=== PATIENT | female | born 1945 | race Caucasian/White ===

== ENCOUNTER → 2016-09-24 | Outpatient (REF) | payer MEDICARE, OTHER | LOC: M LAB REF 13:17 | PROVIDERS: ATTEND Family Medicine | DX: Z01.89 Encounter for other specified special examinations (principal) ==

== ENCOUNTER → 2019-05-19 | Outpatient (REF) | payer MEDICARE, OTHER ==
[2019-05-22 00:16] LABS: Lyme Disease IgG/IgM Antibodie <0.91 ISR (0.00-0.90); Lyme Disease IgM Ab Quantitati <0.80 index (0.00-0.79)
== END ==
LOC: M LAB REF 16:25
PROVIDERS: ATTEND Registered Nurse
DX: M25.511 Pain in right shoulder (principal)

== ENCOUNTER → 2020-06-05 | Outpatient (CLI) | payer SELFPAY | LOC: M LABSMTC 11:41 | PROVIDERS: ATTEND Pediatrics | DX: Z20.828 Contact with and (suspected) exposure to other viral communicable diseases (principal) ==

== ENCOUNTER → 2021-04-20 | Outpatient (CLI) | payer MEDICARE, OTHER | LOC: M LABSMTC 09:05 | PROVIDERS: ATTEND Family Medicine | DX: Z20.822 Contact with and (suspected) exposure to COVID-19 (principal) | CPT/HCPCS: C9803; U0003 ==

== ENCOUNTER → 2021-06-28 | Outpatient (REF) | LOC: M LABSMTC 09:07 | PROVIDERS: ATTEND Pediatrics | DX: Z11.52 Encounter for screening for COVID-19 (principal) ==

== ENCOUNTER 2021-07-04 07:28 | Outpatient (CLI) | payer MEDICARE, OTHER ==
[~2021-07-04] VITALS: Ht 157.5 cm; Wt 70.0 kg
[~2021-07-04 07:28] MED LIST: ALBUTEROL 90 MCG/ACT 8GM HFA INHALER INH PRN; ALBUTEROL SULFATE 2.5 MG/0.5 ML INH NEB SOLN INH PRN; EPINEPHrine INJ 1 MG/ML 1ML AMP IM PRN; NS 1,000 ML IV SCH; diphenhydrAMINE 50MG/ML VIAL (J1200) IV PRN; methylPREDNISolone 125MG 2ML VIAL IV PRN
[2021-07-04] MEDS ORDERED: ACETAMINOPHEN TAB 650MG DOSE (2X325MG) PO ONE (07:30)
[2021-07-04] MEDS ORDERED: BAMLANIVIMAB 700 MG, ETESEVIMAB 1,400 MG in NS 250 ML IV ONE (07:30)
[2021-07-04 08:29] VITALS: BP 142/64
[2021-07-04 08:59] VITALS: BP 124/58
[2021-07-04 09:29] VITALS: BP 126/58
[2021-07-04 10:29] VITALS: BP 112/73
== END 2021-07-04 10:29 | disposition home or self-care (01) ==
LOC: M OPCLI4PR 07:28
PROVIDERS: ATTEND Family Medicine
DX: U07.1 COVID-19 (principal)

== ENCOUNTER → 2022-03-18 | Outpatient (CLI) | payer MEDICARE, OTHER ==
[~2022-03-18] MED LIST changes: -ALBUTEROL 90 MCG/ACT 8GM HFA INHALER INH PRN; -ALBUTEROL SULFATE 2.5 MG/0.5 ML INH NEB SOLN INH PRN; -EPINEPHrine INJ 1 MG/ML 1ML AMP IM PRN; +ISOVUE-370 76% 100ML VIAL As Ordered ONE; -NS 1,000 ML IV SCH; -diphenhydrAMINE 50MG/ML VIAL (J1200) IV PRN; -methylPREDNISolone 125MG 2ML VIAL IV PRN
== END ==
LOC: M RAD 15:07
PROVIDERS: ATTEND Family Medicine
DX: R91.8 Other nonspecific abnormal finding of lung field (principal); E07.9 Disorder of thyroid, unspecified; I25.10 Atherosclerotic heart disease of native coronary artery without angina pectoris
CPT/HCPCS: 71260; Q9967

== ENCOUNTER → 2023-02-26 | Outpatient (CLI) | payer MEDICARE, OTHER ==
[2023-02-26 14:05] LABS: ALBUMIN 3.8 G/DL (3.2-5.2); ALKALINE PHOSPHATASE 94 U/L (46-116); ALT/SGPT 19 U/L (7.0-40); AST/SGOT 21 U/L (<34); BILIRUBIN,TOTAL 0.7 MG/DL (0.3-1.2); BLOOD UREA NITROGEN 16 MG/DL (9-23); CALCIUM LEVEL 9.4 MG/DL (8.3-10.6); CARBON DIOXIDE LEVEL 30 MMOL/L (20-31); CHLORIDE LEVEL 103 MMOL/L (98-107); CHOLESTEROL LEVEL 139 MG/DL (<200); CHOLESTEROL RISK RATIO 2.53 (<5); CREATININE FOR GFR 0.85 MG/DL (0.55-1.30); GLOMERULAR FILTRATION RATE > 60.0 (>39); GLUCOSE, FASTING 92 MG/DL (74-106); HDL CHOLESTEROL 54.9 MG/DL (>40); LDL CHOLESTEROL 62.9 MG/DL (<100); NON-HDL-C 84.1 MG/DL; SODIUM LEVEL 141 MMOL/L (136-145); TOTAL PROTEIN 6.8 G/DL (5.7-8.2); TRIGLYCERIDES LEVEL 106 MG/DL (<150)
== END ==
LOC: M PLALAB 09:49
PROVIDERS: ATTEND Family Medicine
DX: I10 Essential (primary) hypertension (principal); E78.5 Hyperlipidemia, unspecified; E03.9 Hypothyroidism, unspecified

== ENCOUNTER → 2023-08-11 | Outpatient (CLI) | payer MEDICARE, OTHER | LOC: M WUC 15:41 | PROVIDERS: ATTEND Nurse Practitioner Family | DX: M19.011 Primary osteoarthritis, right shoulder (principal) ==

== ENCOUNTER → 2023-08-11 | Outpatient (REF) | payer MEDICARE, OTHER ==
[2023-08-11 18:00] LABS: C REACTIVE PROTEIN QUANTITATIV < 0.40 MG/DL (<1.0)
[2023-08-11 18:01] LABS: RHEUMATOID FACTOR QUANT < 3.5 IU/ML (<14)
== END ==
LOC: M LAB REF 16:41
PROVIDERS: ATTEND Nurse Practitioner Family
DX: M25.50 Pain in unspecified joint (principal); R53.83 Other fatigue

== ENCOUNTER → 2023-12-02 | Outpatient (REF) | payer MEDICARE, OTHER | LOC: M LAB REF 10:10 | PROVIDERS: ATTEND Physician Assistant | DX: R10.9 Unspecified abdominal pain (principal) ==

== ENCOUNTER → 2024-04-29 | Outpatient (CLI) | payer MEDICARE, OTHER | LOC: M PLAIMG 09:57 | PROVIDERS: ATTEND Physician Assistant | DX: I08.0 Rheumatic disorders of both mitral and aortic valves (principal) ==

== ENCOUNTER 2024-05-06 13:05 | Outpatient (RCR) | payer MEDICARE, OTHER | END 2024-05-29 | LOC: M PT 13:05 | PROVIDERS: ATTEND Nurse Practitioner Family | DX: N39.3 Stress incontinence (female) (male) (principal) ==

== ENCOUNTER 2024-06-14 14:29 | Outpatient (RCR) | payer MEDICARE, OTHER | END 2024-06-29 | LOC: M PT 14:29 | PROVIDERS: ATTEND Nurse Practitioner Family | DX: N39.3 Stress incontinence (female) (male) (principal) ==

== ENCOUNTER 2024-07-27 12:16 | Outpatient (RCR) | payer MEDICARE, OTHER | END 2024-07-30 | LOC: M PT 12:16 | PROVIDERS: ATTEND Nurse Practitioner Family | DX: N39.3 Stress incontinence (female) (male) (principal) ==

== ENCOUNTER → 2025-02-22 | Outpatient (CLI) | payer MEDICARE, OTHER | LOC: M WUC 14:47 | PROVIDERS: ATTEND Nurse Practitioner Family | DX: R05.9 Cough, unspecified (principal) ==